=== PATIENT | male | born 1975 | race Caucasian/White ===

== ENCOUNTER → 2019-12-21 | Outpatient (CLI) | payer OTHER ==
[~2019-12-21] MED LIST: ZOLPIDEM 5 MG TABLET. PO ONE
--- NOTE | 2019-12-22 13:07 | SLEEP ---
DATE OF STUDY: 12/21/2019 SLEEP STUDY REFERRING PHYSICIAN: Dr. Radha Gauthier. The patient is a 44-year-old who weighs 220 pounds with a BMI of 33. The patient had a previous sleep study on 12/13/2019 and was found to have mild VU at an AHI of 11.7 per hour. The patient was referred back for CPAP titration study performed at [facility]. During the night study, the patient spent 399 minutes in bed and slept for 360 minutes with a sleep efficiency of 90%. Sleep latency was 9 minutes with a REM latency of 140 minutes. Sleep architecture showed normal stage 1 and stage 2 sleep, increased slow wave and normal REM sleep. EKG monitoring revealed an average heart rate of 65 beats per minute. No sustained arrhythmias observed. No clinically significant PLM seen. The patient was started on CPAP at a pressure of 5 cm water and titrated up to 7 cm water. At the final pressure, the patient slept for 315 minutes. The patient had supine as well as REM sleep. The patient's AHI was reduced to 0 per hour and oxygen saturation remained above 93%. The patient used a large size full face mask. IMPRESSION: 1. Sleep apnea diagnosed by previous sleep study. 2. No clinically significant periodic limb movements. RECOMMENDATIONS: 1. CPAP at 7 cm water completely eliminated the patient's sleep apnea and should be used on a nightly basis. The patient used a large size full face mask. 2. Follow up in 4-6 weeks to assess compliance with CPAP and to document clinical improvement. 3. Weight loss is strongly advised. 4. Avoid POL[employer] depressants. 5. Cautioned regarding driving until symptoms of sleep apnea resolve with the use of CPAP. MARYCARMEN ROMERO MD DR: BAMBI/donald JOB#: [id number] / [id number] Radha Alvarez
== END ==
LOC: RT 19:17
PROVIDERS: ATTEND Family Medicine
DX: G47.33 Obstructive sleep apnea (adult) (pediatric) (principal)
CPT/HCPCS: 95811